=== PATIENT | female | born 1945 | race Caucasian/White ===

== ENCOUNTER 2021-09-22 19:55 | Observation (INO) ==
[2021-09-22] MEDS ORDERED: 0.9 % Sodium Chloride 1,000 ML IVC ONE (20:33)
[2021-09-22] MEDS ORDERED: Isovue-370 500 ML BOTTLE IVP ONE (20:34)
[2021-09-22 20:56] LABS: Basophils # 0.1 K/mcL (0.0-0.2); Basophils % 0.7 %; Eosinophils # 0.5 K/mcL (0.0-0.6); Eosinophils % 3.8 %; Hematocrit 36.6 % (35.3-44.9); Immature Granulocytes % 0.7 % (0-4); Lymphocytes # 2.6 K/mcL (0.6-4.6); Lymphocytes % 20.6 %; Mean Corpuscular HGB Conc 32.8 g/dL (31.6-35.5); Mean Corpuscular Hemoglobin 30.8 pg (28.0-33.3); Mean Corpuscular Volume 94.1 fL (83.0-100.0); Mean Platelet Volume 10.6 fL (9.4-12.4); Monocytes # 0.7 K/mcL (0.0-1.3); Monocytes % 5.5 %; Neutrophils # 8.8 K/mcL (1.6-8.9); Platelet Count 337 K/mcL (140-400); Red Blood Count 3.89 M/mcL (3.82-4.97); Red Cell Distribution Width 12.9 % (11.5-14.5); Segmented Neutrophils % 68.7 %; White Blood Count 12.8 K/mcL (4.3-11.1)
[2021-09-22 21:03] LABS: INR 1.2; Prothrombin Time 12.9 Seconds (9.4-12.1)
[2021-09-22 21:05] LABS: Activated Partial Thrombo Time 32.9 Seconds (26.0-36.0)
[2021-09-22 21:15] LABS: Albumin 4.1 g/dL (3.5-5.7); Albumin/Globulin Ratio 1.4 (1.1-2.2); Bilirubin,Total 0.3 mg/dL (0.3-1.0); Calcium 9.8 mg/dL (8.6-10.3); Globulin 2.9 g/dL (2.4-3.5); Potassium 3.4 mEq/L (3.5-5.1)
[2021-09-22] MEDS ORDERED: levoFLOXacin 750 MG/150 ML 750 MG/150 ML BAG IVPB ONE (22:36)
[2021-09-22] MEDS ORDERED: MetroNIDAZOLE 500 MG/100 ML 500 MG/100 ML BAG IVPB ONE (22:36)
[2021-09-22] MEDS ORDERED: Pantoprazole 40 MG VIAL IVP ONE (23:03)
[2021-09-22 23:58] LABS: Hematocrit 32.3 % (35.3-44.9); Hemoglobin 10.6 g/dL (11.5-15.4)
[2021-09-23] MEDS ORDERED: Ondansetron 4 MG/2 ML VIAL IVP PRN (00:08)
[2021-09-23] MEDS ORDERED: *HR* HYDROcodone/Acet 5/325 mg TABLET PO PRN (00:08)
[2021-09-23] MEDS ORDERED: Naloxone 0.4 MG/ML INJ IVP PRN (00:08)
[2021-09-23] MEDS ORDERED: Acetaminophen 325 MG TABLET PO PRN (00:08)
[2021-09-23] MEDS ORDERED: *HR* OxyCODONE Immed Rel 5 MG TABLET PO PRN (00:08)
[2021-09-23] MEDS ORDERED: Melatonin 3 MG TABLET PO PRN (00:08)
[2021-09-23] MEDS ORDERED: *HR* Promethazine 25 MG/ML VIAL IM PRN (00:08)
[2021-09-23] MEDS: Ringers Solution, Lactated 1,000 ML IVC SCH ×2 (01:39→09:33)
[2021-09-23 02:34] LABS: Basophils # 0.1 K/mcL (0.0-0.2); Basophils % 0.6 %; Eosinophils # 0.1 K/mcL (0.0-0.6); Eosinophils % 1.2 %; Hematocrit 32.9 % (35.3-44.9); Hemoglobin 11.2 g/dL (11.5-15.4); Immature Granulocytes % 0.6 % (0-4); Lymphocytes # 1.9 K/mcL (0.6-4.6); Lymphocytes % 15.5 %; Mean Platelet Volume 10.7 fL (9.4-12.4); Monocytes # 0.7 K/mcL (0.0-1.3); Monocytes % 5.5 %; Neutrophils # 9.3 K/mcL (1.6-8.9); Platelet Count 274 K/mcL (140-400); Segmented Neutrophils % 76.6 %; White Blood Count 12.2 K/mcL (4.3-11.1)
[2021-09-23 02:45] LABS: INR 1.2; Prothrombin Time 13.9 Seconds (9.4-12.1)
[2021-09-23 02:54] LABS: BUN/Creatinine Ratio 27 (6-26); Blood Urea Nitrogen 24 mg/dL (8-23); Carbon Dioxide 24 mEq/L (23-29); Chloride 105 mEq/L (98-107); Glucose 148 mg/dL (70-105); Magnesium 1.8 mg/dL (1.6-2.6); Osmolality,Calculated 295 (280-300); Potassium 3.9 mEq/L (3.5-5.1); Sodium 139 mEq/L (136-145); eGFR For African Americans > 60 (> 60); eGFR For Non-African Americans > 60 (> 60)
[2021-09-23] MEDS ORDERED: *HR* Enoxaparin 40 MG/0.4 ML SYRINGE SQ SCH (06:00)
[2021-09-23 08:23] VITALS: O2SAT 95
[2021-09-23] MEDS: metroNIDAZOLE 500 MG TABLET PO SCH ×2 (09:33→14:28)
[2021-09-23 11:42] VITALS: BP 120/71; PULSE 79; TEMP 97.9
[2021-09-23] MEDS ORDERED: Artificial Tears SOLN 15 ML BOTTLE BOTH EYES SCH (21:00)
[2021-09-23] MEDS ORDERED: Latanoprost 2.5 ML BOTTLE BOTH EYES SCH (21:00)
[2021-09-24] MEDS ORDERED: lisinopriL 5 MG TABLET PO SCH (09:00)
[2021-09-24] MEDS ORDERED: Cholecalciferol (D-3) 1,000 UNIT (25MCG) TABLET PO SCH (09:00)
[2021-09-24] MEDS ORDERED: Multivit/Ca/Min/Fe/FA 1 TAB TABLET PO SCH (09:00)
[2021-09-24] MEDS ORDERED: TURMERIC 400 MG PO SCH (09:00)
[2021-09-24] MEDS ORDERED: Ascorbic Acid 500 MG TABLET PO SCH (09:00)
== END 2021-09-23 15:12 | disposition home or self-care (01) ==
LOC: EMEROOARM 19:55 → 3ANU 19:55 → SUATTDRO 23:53 → 3ANU 09-23 00:10
PROVIDERS: ADMIT Family Medicine; ATTEND Internal Medicine